=== PATIENT | male | born 2000 | race African-American/Black ===

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

== ENCOUNTER 2022-09-08 20:42 | Emergency (ER) | payer MEDICAID, OTHER ==
[~2022-09-08] VITALS: Ht 177.8 cm; Wt 72.7 kg
[2022-09-08 21:11] VITALS: BP 149/77
[2022-09-08] MEDS ORDERED: IBUP800T26 PO (23:26)
== END 2022-09-09 00:01 | disposition home or self-care (01) ==
LOC: ER 20:44
DX: M54.16 Radiculopathy, lumbar region (principal); S33.5XXD Sprain of ligaments of lumbar spine, subsequent encounter; X58.XXXD Exposure to other specified factors, subsequent encounter
CPT/HCPCS: 72100